=== PATIENT | female | born 1990 | race American Indian/Alaskan Native ===

== ENCOUNTER 2016-10-29 00:03 | Emergency (ER) | payer MEDICAID ==
[2016-10-29 00:04] VITALS: BMI 30.1
[2016-10-29 00:37] VITALS: BP 130/72; PULSE 82; RESP 18; TEMP 98.8; O2SAT 100
--- NOTE | 2016-10-29 00:58 | ED PDOC ---
Arrival/HPI - General Chief Complaint: Back Pain Time Seen by Provider: 10/29/16 00:58 - History of Present Illness Narrative History of Present Illness (Text): Patient presents complaining of back pain around her L. lower scapular region x1 year. States quality feels like muscle spasms. Worst with movement and palpation. Pt states this feels identical to previous back pain quality that have happened in the past. Denies any trauma or injury. Denies SOB/PARIS. States pain is non-pleuritic in nature. Denies fevers/chills, denies IVDA, denies any lower extremity weakness/numbness/paresthesias. Pt denies saddle anesthesia. Denies any urinary freq or retention. Denies bowel dysfunction/irregularity/ incontinence/constipation. Past Medical History - Provider Review Nursing Documentation Reviewed: Yes - Past History Past History: No Previous - Infectious Disease Hx of Infectious Diseases: None - Tetanus Immunization Tetanus Immunization: Unknown - Past Medical History Past Medical History: Non-Contributing - Cardiac Hx Cardiac Disorders: No - Pulmonary Hx Asthma: Yes - Neurological Hx Neurological Disorder: No - HEENT Hx HEENT Disorder: No - Renal Hx Renal Disorder: No - Endocrine/Metabolic Hx Endocrine Disorders: No - Hematological/Oncological Hx Blood Disorders: Yes (carries sickle cell trait) - Integumentary Hx Dermatological Disorder: No - Musculoskeletal/Rheumatological Hx Back Pain: Yes Hx Falls: No - Gastrointestinal Hx Gastrointestinal Disorders: No - Genitourinary/Gynecological Hx Genitourinary Disorders: No Other/Comment: hx of ovarian cysts - Psychiatric Hx Depression: No Hx Emotional Abuse: No Hx Physical Abuse: No Hx Substance Use: No - Surgical History Hx Section: Yes Other/Comment: OVARIA CYCT REMOVAL - Anesthesia Hx Anesthesia: Yes Hx Anesthesia Reactions: No Hx Malignant Hyperthermia: No - Suicidal Assessment Feels Threatened In Home Enviroment: No Family/Social History Family/Social History: Unknown Family HX Smoking Status: Current Some Days Smoker Hx Alcohol Use: Yes Frequency of alcohol use: Socially Hx Substance Use: No Hx Substance Use Treatment: No Allergies/Home Meds Allergies/Adverse Reactions: Allergies No Known Allergies Allergy (Verified 10/29/16 00:34) Review of Systems - Physician Review All systems were reviewed & negative as marked: Yes Physical Exam - Physical Exam Narrative Physical Exam (Text): 10/29/16 01:03 - Review of Systems Constitutional: Normal. absent: Fatigue, Weight Change, Fevers Eyes: Normal ENT: denies sore throat, denies tristhmus Respiratory: Normal. absent: SOB, Cough, Sputum Cardiovascular: absent: Chest Pain, Palpitations, Syncope Gastrointestinal: Normal. absent: Abdominal Pain, Diarrhea, Nausea, Vomiting Genitourinary: Normal. absent: Dysuria, Frequency, Hematuria Musculoskeletal: back pain. absent: Arthralgias, Neck Pain Skin: no rashes, no erythema Neurological: absent: Focal Weakness Endocrine: Normal Hemo/Lymphatic: Normal Psychiatric: No suicidal or homicidal ideations Physical exam Patient appears age appropriate in no distress, speaking full sentences without difficulty Increased hypertonicity appreciated in the L. subscapular region, pain quality reproduced with palpation. No midline tenderness. FROM of pt's cervical, thoracic, lumbar, and sacral regions appreciated, active/passive without any difficulty. Lower extremities with full neurological and vascular intact. Steady gait. - Systems Exam Head: Present: Atraumatic, Normocephalic Pupils: Present: PERRL Extroacular Muscles: Present: EOMI Conjunctiva: Present: Normal Mouth: Present: Moist Mucous Membranes Neck: Present: Normal Range of Motion. No: MIDLINE TENDERNESS, Paraspinal Tenderness Respiratory/Chest: Present: Clear to Auscultation, Good Air Exchange. No: Respiratory Distress, Accessory Muscle Use, Tachypneic Cardiovascular: Present: Regular Rate and Rhythm, Normal S1, S2, Peripheal Pulses Present. No: Murmurs Abdomen: Present: Normal Bowel Sounds. No: Tenderness, Distention, Peritoneal Signs, Rebound, Guarding Back: No: Midline Tenderness Upper Extremity: Present: Normal Inspection. No: Cyanosis, Edema Lower Extremity: Present: Normal Inspection. No: Edema Neurological: Present: GCS=15, Speech Normal, cranial nerves II through XII fully intact with no cerebellar abnormality, neurosensory fully intact. No focal neurological deficits. Skin: Present: Warm, Dry, Normal Color. No: Rashes Lymphatic: Present: OX3, NI, NC Psychiatric: Present: Alert, Oriented x 3, Normal Insight, Normal Concentration Vital Signs Reviewed: Yes Vital Signs Temp Pulse Resp BP Pulse Ox 10/29/16 00:36 98.8 F 82 18 130/72 100 Temperature: Afebrile Blood Pressure: Normal Pulse: Regular Respiratory Rate: Normal Appearance: Positive for: Well-Appearing Pain Distress: None Mental Status: Positive for: Alert and Oriented X 3 Medical Decision Making ED Course and Treatment: Based on hx and physical, no suspicion for renal involvement, cord impingement or epidural/spinal abscess stable for dc home. instructed not to drive/operate machinery/drink/do drugs with medication Pt verbalized understands to return to the ER right away for new or worsening symptoms or for inability to f/u with PMD or specialist as instructed. Patient verbalized full agreement with and understanding of discharge instructions. States that she agrees with the plan and disposition. Verbalized and repeated discharge instructions and plan. I have given the patient opportunity to ask any additional questions. Disposition/Present on Arrival - Present on Arrival Any Indicators Present on Arrival: No History of DVT/PE: No History of Uncontrolled Diabetes: No Urinary Catheter: No History of Decub. Ulcer: No History Surgical Site Infection Following: None - Disposition Have Diagnosis and Disposition been Completed?: Yes Diagnosis: Back pain Disposition: HOME/ ROUTINE Disposition Time: 01:01 Patient Plan: Discharge Condition: GOOD Discharge Instructions (ExitCare): Back Pain (ED) Additional Instructions: PLEASE RETURN TO THE EMERGENCY DEPARTMENT FOR NEW OR WORSENING SYMPTOMS. RETURN RIGHT AWAY IF YOU CANNOT FOLLOW UP WITH YOUR PRIMARY CARE DOCTOR, CLINIC, OR SPECIALIST IN 1-2 DAYS. Prescriptions: Diazepam [Valium] 2 mg PO DAILY PRN #5 tab PRN Reason: Pain, Severe (8-10) Ibuprofen [Motrin] 600 mg PO Q8 PRN #12 tab PRN Reason: Pain, Moderate (4-7) Referrals: Marlon Fang [Medical Doctor] - Follow up with primary Stalin Steward MD [Staff Provider] - Follow up with primary
== END 2016-10-29 01:10 | disposition home or self-care (01) ==
LOC: ED 00:03
DX: M54.9 Dorsalgia, unspecified (principal)

== ENCOUNTER 2017-02-07 19:26 | Emergency (ER) | payer MEDICAID ==
--- NOTE | 2017-02-07 20:05 | ED PDOC ---
Arrival/HPI - General Historian: Patient <Juancarlos Henderson - Last Filed: 02/07/17 20:50> <Kanu Floyd - Last Filed: 02/07/17 20:53> - General Time Seen by Provider: 02/07/17 19:54 - History of Present Illness Narrative History of Present Illness (Text): 02/07/17 19:56 26yo female with history of Asthma present with complaint of suprapubic abdominal pain and upper mid back pain. Abdominal pain started yesterday and back pain is chronic, but worse over the past few days. She noted history of herniated disc. States she saw her PMD for the pain and MRI was done. She noes that she gets pain medication from her PMD without relieve. Pain is usually with movement. +Urinary frequency. Denies trauma, ripping/tearing back pain, hematuria, fever, chills, nausea, vomiting, diarrhea, any other complaint. ( Juancarlos Henderson A) Past Medical History - Provider Review Nursing Documentation Reviewed: Yes - Past History Past History: No Previous - Infectious Disease Hx of Infectious Diseases: None - Tetanus Immunization Tetanus Immunization: Unknown - Past Medical History Past Medical History: Non-Contributing - Cardiac Hx Cardiac Disorders: No - Pulmonary Hx Asthma: Yes - Neurological Hx Neurological Disorder: No - HEENT Hx HEENT Disorder: No - Renal Hx Renal Disorder: No - Endocrine/Metabolic Hx Endocrine Disorders: No - Hematological/Oncological Hx Blood Disorders: Yes (carries sickle cell trait) - Integumentary Hx Dermatological Disorder: No - Musculoskeletal/Rheumatological Hx Back Pain: Yes Hx Falls: No - Gastrointestinal Hx Gastrointestinal Disorders: No - Genitourinary/Gynecological Hx Genitourinary Disorders: No Other/Comment: hx of ovarian cysts - Psychiatric Hx Depression: No Hx Emotional Abuse: No Hx Physical Abuse: No Hx Substance Use: No - Surgical History Hx Section: Yes Other/Comment: OVARIA CYCT REMOVAL - Anesthesia Hx Anesthesia: Yes Hx Anesthesia Reactions: No Hx Malignant Hyperthermia: No - Suicidal Assessment Feels Threatened In Home Enviroment: No <Juancarlos Henderson - Last Filed: 02/07/17 20:50> Family/Social History - Physician Review Nursing Documentation Reviewed: Yes Family/Social History: Unknown Family HX Smoking Status: Current Some Days Smoker Hx Alcohol Use: Yes Hx Substance Use: No Hx Substance Use Treatment: No <Juancarlos Henderson - Last Filed: 02/07/17 20:50> Allergies/Home Meds <Juancarlos Henderson - Last Filed: 02/07/17 20:50> <MarielKanu - Last Filed: 02/07/17 20:53> Allergies/Adverse Reactions: Allergies No Known Allergies Allergy (Verified 10/29/16 00:34) Review of Systems - Physician Review All systems were reviewed & negative as marked: Yes - Review of Systems Constitutional: Normal Eyes: Normal ENT: Normal Respiratory: Normal Cardiovascular: Normal Gastrointestinal: Abdominal Pain. absent: Constipation, Diarrhea, Nausea, Vomiting Genitourinary Female: Frequency. absent: Dysuria, Hematuria Musculoskeletal: Back Pain Skin: Normal Neurological: Normal Endocrine: Normal Hemo/Lymphatic: Normal Psychiatric: Normal <Juancarlos Henderson A - Last Filed: 02/07/17 20:50> Physical Exam Vital Signs Reviewed: Yes Temperature: Afebrile Blood Pressure: Normal Pulse: Regular Respiratory Rate: Normal Appearance: Positive for: Well-Appearing, Non-Toxic, Comfortable Pain Distress: None Mental Status: Positive for: Alert and Oriented X 3 - Systems Exam Head: Present: Atraumatic, Normocephalic Pupils: Present: PERRL Extroacular Muscles: Present: EOMI Conjunctiva: Present: Normal Mouth: Present: Moist Mucous Membranes Neck: Present: Normal Range of Motion Respiratory/Chest: Present: Clear to Auscultation, Good Air Exchange. No: Respiratory Distress, Accessory Muscle Use Cardiovascular: Present: Regular Rate and Rhythm, Normal S1, S2. No: Murmurs Abdomen: Present: Normal Bowel Sounds. No: Tenderness, Distention, Peritoneal Signs, Rebound, Guarding, McBurney's Point Tender, Rovsing's Sign Present Back: Present: Midline Tenderness, Paraspinal Tenderness. No: CVA Tenderness, Pain with Leg Raise Upper Extremity: Present: Normal Inspection. No: Cyanosis, Edema Lower Extremity: Present: Normal Inspection. No: Edema Neurological: Present: GCS=15, CN II-XII Intact, Speech Normal Skin: Present: Warm, Dry, Normal Color. No: Rashes Psychiatric: Present: Alert, Oriented x 3, Normal Insight, Normal Concentration <Juancarlos Henderson - Last Filed: 02/07/17 20:50> Vital Signs Temp Pulse Resp BP Pulse Ox 10/23/17 20:05 98.8 F 85 16 123/52 L 99 Medical Decision Making <Juancarlos Henderson - Last Filed: 02/07/17 20:50> <Kanu Floyd - Last Filed: 02/07/17 20:53> ED Course and Treatment: 02/07/17 20:50 PT was ambulatory in ED. On re evaluation she notes that her pain improved in ED with medication. UA - +UTI. she was treated with Macorbid. Result was DW the pt and she was DC home with NSAID, muscle relaxer and macrobid. Referred to her PMD. TRT ED for any new or worsening symptoms. (Juancarlos Henderson ) - Lab Interpretations Lab Results: Lab Results 02/07/17 19:55: Urine Color Yellow, Urine Appearance Clear, Urine pH 6.5, Ur Specific [place] 1.010, Urine Protein Negative, Urine Glucose (UA) Negative, Urine Ketones Negative, Urine Blood Negative, Urine Nitrate Negative, Urine Bilirubin Negative, Urine Urobilinogen 0.2, Ur Leukocyte Esterase Moderate H, Urine RBC 0 - 2, Urine WBC 20 - 25, Ur Epithelial Cells 6 - 8, Amorphous Sediment Few, Urine Bacteria Many, Urine Other Uyeast - Medication Orders Current Medication Orders: Discontinued Medications Cyclobenzaprine HCl (Flexeril) 10 mg PO STAT STA Stop: 02/07/17 19:57 Dexamethasone (Decadron Inj) 10 mg IM STAT STA Stop: 02/07/17 19:56 Ketorolac Tromethamine (Toradol) 60 mg IM STAT STA Stop: 02/07/17 19:56 Nitrofurantoin Macrocrystals (Macrobid) 100 mg PO ONCE STA Stop: 02/07/17 20:19 - PA / DAY LIGHT RELIEF OPERATOR / Resident Statement MD/DO has reviewed & agrees with the documentation as recorded. <Kanu Floyd - Last Filed: 02/07/17 20:53> Disposition/Present on Arrival - Present on Arrival Any Indicators Present on Arrival: No History of DVT/PE: No History of Uncontrolled Diabetes: No Urinary Catheter: No History Surgical Site Infection Following: None - Disposition Have Diagnosis and Disposition been Completed?: Yes Disposition Time: 20:35 Patient Plan: Discharge <Juancarlos Henderson - Last Filed: 02/07/17 20:50> <Kanu Floyd - Last Filed: 02/07/17 20:53> - Disposition Diagnosis: UTI (urinary tract infection), Back pain Disposition: HOME/ ROUTINE Patient Problems: Current Active Problems Problem Status Onset Back pain Acute UTI (urinary tract infection) Acute Condition: STABLE Discharge Instructions (ExitCare): Urinary Tract Infection in Women (ED), Chronic Back Pain (ED) Additional Instructions: Drink plenty of fluid and take cranberry supplement Follow up with your doctor Return to ED for any new or worsening symptoms Prescriptions: Cyclobenzaprine [Cyclobenzaprine HCl] 10 mg PO TID #12 tab Naproxen [Naprosyn] 500 mg PO BID #20 tab Nitrofurantoin Macrocrystals [Macrobid] 100 mg PO BID #14 cap Referrals: Royer Fang MD [Primary Care Provider] - Follow up with primary
[2017-02-07 20:10] LABS: PH,URINE 6.5 (4.7-8.0); URINE APPEARANCE CLEAR (CLEAR); URINE BILIRUBIN NEGATIVE (NEGATIVE); URINE BLOOD NEGATIVE (NEGATIVE); URINE COLOR YELLOW (YELLOW); URINE GLUCOSE (UA) NEGATIVE (NEGATIVE); URINE KETONE NEGATIVE (NEGATIVE); URINE LEUKOCYTE ESTERASE MODERATE Leu/uL (NEGATIVE); URINE PROTEIN NEGATIVE mg/dL (<30 mg/dL); URINE UROBILINOGEN 0.2 E.U./dL (<1 E.U./dL)
[2017-02-07 20:12] VITALS: BP 123/52; PULSE 85; RESP 16; O2SAT 99
[2017-02-07 20:18] LABS: URINE RBC 0 - 2 /hpf (0-2); URINE WBC 20 - 25 /hpf (0-6)
[2017-02-07 20:19] LABS: URINE AMORPHOUS SEDIMENT FEW; URINE BACTERIA MANY (NEG)
[2017-02-07 22:17] VITALS: TEMP 98.5
== END 2017-02-07 20:51 | disposition home or self-care (01) ==
LOC: ED 19:26
DX: N39.0 Urinary tract infection, site not specified (principal); M54.9 Dorsalgia, unspecified
CPT/HCPCS: 81001; 87086; 96372; 99283; J1100; J1885

== ENCOUNTER 2017-03-23 12:34 | Emergency (ER) | payer MEDICAID ==
[2017-03-23 13:03] VITALS: TEMP 98.3
[2017-03-23 13:54] LABS: BASO # 0.01 K/mm3 (0.0-2.0); BASO % 0.1 % (0.0-3.0); EOS # 0.2 (0.0-0.7); GRAN # 4.67 (1.4-6.5); GRAN % 66.7 % (50.0-68.0); HEMATOCRIT 36.4 % (36.0-48.0); LYMPH # 1.7 (1.2-3.4); LYMPH % 23.9 % (22.0-35.0); MEAN CELL VOLUME 78.3 fl (80.0-105.0); MEAN CORPUSCULAR HEMOGLOBIN 27.1 pg (25.0-35.0); MEAN CORPUSCULAR HGB CONC 34.6 g/dl (31.0-37.0); MEAN PLATELET VOLUME 10.6 fl (7.0-11.0); MONO # 0.4 (0.1-0.6); MONO % 6.3 % (1.0-6.0); RED CELL DISTRIBUTION WIDTH 13.7 % (11.5-14.5); URINE BILIRUBIN NEGATIVE (NEGATIVE); URINE BLOOD MODERATE (NEGATIVE); URINE GLUCOSE (UA) NEGATIVE (NEGATIVE); URINE KETONE NEGATIVE (NEGATIVE); URINE LEUKOCYTE ESTERASE SMALL Leu/uL (NEGATIVE); URINE PROTEIN NEGATIVE mg/dL (<30 mg/dL); URINE UROBILINOGEN 0.2 E.U./dL (<1 E.U./dL)
[2017-03-23 13:56] LABS: URINE APPEARANCE CLEAR (CLEAR); URINE COLOR YELLOW (YELLOW)
[2017-03-23 14:07] LABS: ALB/GLOB RATIO 1.1 (1.1-1.8); ALKALINE PHOSPHATASE 66 U/L (38-126); ALT/SGPT 25 U/L (7-56); AST/SGOT 25 U/L (14-36); BILIRUBIN,TOTAL 0.5 mg/dL (0.2-1.3); BLOOD UREA NITROGEN 8 mg/dL (7-21); CALCIUM 9.7 mg/dL (8.4-10.5); CARBON DIOXIDE 27 mmol/L (21-33); CHLORIDE 104 mmol/L (98-107); GFR AFRICAN-AMERICAN > 60; GLUCOSE,RANDOM 96 mg/dL (70-110); LIPASE 75 U/L (23-300); TOTAL PROTEIN 8.5 g/dL (5.8-8.3)
[2017-03-23 14:16] LABS: SODIUM 141 mmol/L (132-148)
[2017-03-23 14:23] LABS: URINE BACTERIA FEW (NEG)
[2017-03-23 15:20] VITALS: RESP 18; O2SAT 98
--- NOTE | 2017-03-23 15:30 | ED PDOC ---
Arrival/HPI - General Chief Complaint: Abdominal Pain Time Seen by Provider: 03/23/17 13:16 Historian: Patient - History of Present Illness Narrative History of Present Illness (Text): 03/23/17 15:27 26yr old female presents today with chronic left upper back pain and 3 days history of lower abdominal pain/suprapubic pain. pt states she has hx of chronic upper back pain and herniated discs and states when she gets a flare she need a shot for pain and symptoms improve. pt denies cp or sob. no vomiting/ diarrhea. no cp or sob. pt also states that she has been having lower suprapubic pain with hx of UTI in the past. pt c/o dysuria and urinary frequency. denies vaginal bleeding or vaginal discharge. no medications taken for pain at home. denies . no other complaints. Symptom Onset: Gradual Symptom Course: Unchanged Quality: Aching, Cramping Severity Level: 4 Past Medical History - Provider Review Nursing Documentation Reviewed: Yes - Travel History Have you recently traveled outside [place] w/in the past 3 mons?: No - Past History Past History: No Previous - Infectious Disease Hx of Infectious Diseases: None - Tetanus Immunization Tetanus Immunization: Unknown - Reproductive Menopause: No - Past Medical History Past Medical History: Non-Contributing - Cardiac Hx Cardiac Disorders: No - Pulmonary Hx Asthma: Yes - Neurological Hx Neurological Disorder: No - HEENT Hx HEENT Disorder: No - Renal Hx Renal Disorder: No - Endocrine/Metabolic Hx Endocrine Disorders: No - Hematological/Oncological Hx Blood Disorders: Yes (carries sickle cell trait) - Integumentary Hx Dermatological Disorder: No - Musculoskeletal/Rheumatological Hx Back Pain: Yes Hx Falls: No - Gastrointestinal Hx Gastrointestinal Disorders: No - Genitourinary/Gynecological Hx Genitourinary Disorders: No Other/Comment: hx of ovarian cysts - Psychiatric Hx Depression: No Hx Emotional Abuse: No Hx Physical Abuse: No Hx Substance Use: No - Surgical History Hx Section: Yes Other/Comment: OVARIA CYCT REMOVAL - Anesthesia Hx Anesthesia: Yes Hx Anesthesia Reactions: No Hx Malignant Hyperthermia: No - Suicidal Assessment Feels Threatened In Home Enviroment: No Family/Social History - Physician Review Nursing Documentation Reviewed: Yes Family/Social History: Unknown Family HX Smoking Status: Current Some Days Smoker Hx Alcohol Use: Yes Hx Substance Use: No Hx Substance Use Treatment: No Allergies/Home Meds Allergies/Adverse Reactions: Allergies No Known Allergies Allergy (Verified 10/29/16 00:34) Review of Systems - Review of Systems Constitutional: absent: Fatigue, Fevers Respiratory: absent: SOB, Cough Cardiovascular: absent: Chest Pain, Palpitations Gastrointestinal: Abdominal Pain. absent: Constipation, Diarrhea, Nausea, Vomiting Genitourinary Female: Dysuria, Frequency. absent: Hematuria, Urine Output Changes, Vaginal Bleeding, Vaginal Discharge Musculoskeletal: Back Pain. absent: Arthralgias, Neck Pain Skin: absent: Rash, Pruritis Neurological: absent: Headache, Dizziness Psychiatric: absent: Anxiety, Depression, Suicidal Ideation Physical Exam Vital Signs Reviewed: Yes Vital Signs Temp Pulse Resp BP Pulse Ox 03/23/17 16:28 75 18 114/68 98 03/23/17 15:19 78 18 112/65 98 03/23/17 12:56 98.3 F 82 14 114/67 100 Temperature: Afebrile Blood Pressure: Normal Pulse: Regular Respiratory Rate: Normal Appearance: Positive for: Well-Appearing, Non-Toxic, Comfortable Pain Distress: None Mental Status: Positive for: Alert and Oriented X 3 - Systems Exam Head: Present: Atraumatic Mouth: Present: Moist Mucous Membranes Neck: Present: Normal Range of Motion, Trachea Midline. No: MIDLINE TENDERNESS , Paraspinal Tenderness Respiratory/Chest: Present: Clear to Auscultation, Good Air Exchange. No: Respiratory Distress, Accessory Muscle Use Cardiovascular: Present: Regular Rate and Rhythm, Normal S1, S2. No: Murmurs Abdomen: Present: Tenderness (minimal suprapubic tenderness), Normal Bowel Sounds. No: Distention, Peritoneal Signs, Rebound, Guarding Back: Present: Normal Inspection, Paraspinal Tenderness (+ left upper back paraspinal tenderness and trapezius tenderness). No: CVA Tenderness, Midline Tenderness Upper Extremity: Present: Normal ROM Lower Extremity: Present: Normal ROM Neurological: Present: GCS=15, Speech Normal Skin: Present: Warm, Dry, Normal Color. No: Rashes Psychiatric: Present: Alert, Oriented x 3 Medical Decision Making ED Course and Treatment: 03/23/17 15:30 Patient is nontoxic well appearing with stable vital signs presenting withchronic back pain and 3 days of suprapubic pain. CBC wnl CMP wnl Lipase wnl Urinalysis + blood, + leukocytes CAT scan: FINDINGS: There is limited evaluation of the solid organs without the administration of IV contrast. LOWER THORAX: No visible consolidation, pleural effusion, or pneumothorax. LIVER: 6 mm too small to characterize hepatic dome hypodensity ; statistically likely cyst or hemangioma. GALLBLADDER AND BILE DUCTS: Unremarkable unenhanced appearance. PANCREAS: Unremarkable unenhanced appearance. SPLEEN: 5 mm probable splenule. Otherwise unremarkable unenhanced appearance. ADRENALS: Unremarkable unenhanced appearance. KIDNEYS AND URETERS: No hydronephrosis or obstructing renal calculus. BLADDER: The urinary bladder appears unremarkable. REPRODUCTIVE: Uterus is present. APPENDIX: The appendix appears within normal limits of caliber. No secondary signs of acute appendicitis. BOWEL: The stomach is nondistended. Lack of oral contrast limits evaluation for bowel pathology. The bowel loops appear within normal limits of caliber without evidence of intestinal obstruction. PERITONEUM: No significant free fluid. No definite free air. LYMPH NODES: No bulky lymphadenopathy identified. VASCULATURE: No aortic aneurysm. BONES: No acute osseous abnormality is detected. OTHER FINDINGS: None. IMPRESSION: 6 mm too small to characterize hepatic dome hypodensity ; statistically likely cyst or hemangioma. Patient reassessment: pt non toxic well appearing; no distress. stable vitals. Patient refused pelvic exam. Patient states she just got her period. Discussed all results with patient in depth. Advised follow-up with the GI doctor regarding hepatic lesion. Advised antibiotics for UTI. Advised follow-up with her barista within the next 2 days. Advised to return if symptoms worsen persist or if new concerning symptoms develop Patient verbalizes understanding of discharge instructions and need for immediate followup. all aspects of this case were discussed the attending of record. Impression: Abdominal pain, UTI, back pain Motrin every 6 hours as needed for pain flexeril; 1 tablet every 8 hours as needed for muscle spasms; may cause drowsiness Kelfex; 1 capsule 4 times daily x 7 days. Follow up with primary care physician within the next 2 days Follow up with the contact acid plant operator within the next 2 days. Follow up with the GI specialist regarding Liver lesion. Return immediately if symptoms worsen persist or if new symptoms develop: High fevers, increasing pain, vomiting, diarrhea or any other concerning symptoms develop - Lab Interpretations Lab Results: 03/23/17 13:05 03/23/17 13:05 Lab Results 03/23/17 13:05: Urine Color Yellow, Urine Appearance Clear, Urine pH 6.0, Ur Specific [place] 1.015, Urine Protein Negative, Urine Glucose (UA) Negative, Urine Ketones Negative, Urine Blood Moderate H, Urine Nitrate Negative, Urine Bilirubin Negative, Urine Urobilinogen 0.2, Ur Leukocyte Esterase Small H, Urine RBC 1 - 3, Urine WBC 5 - 10, Ur Epithelial Cells 3 - 4, Urine Bacteria Few 03/23/17 13:05: WBC 7.0, RBC 4.65, Hgb 12.6, Hct 36.4, MCV 78.3 L, MCH 27.1, MCHC 34.6, RDW 13.7, Plt Count 230, MPV 10.6, Gran % 66.7, Lymph % (Auto) 23.9, Hanson % (Auto) 6.3 H, Eos % (Auto) 3.0, Baso % (Auto) 0.1, Gran # 4.67, Lymph # 1.7, Hanson # 0.4, Eos # 0.2, Baso # 0.01 03/23/17 13:05: Sodium 141, Potassium 4.0, Chloride 104, Carbon Dioxide 27, Anion Gap 14, BUN 8, Creatinine 0.9, Est GFR ( Amer) > 60, Est GFR (Non- Af Amer) > 60, Random Glucose 96, Calcium 9.7, Total Bilirubin 0.5, AST 25, ALT 25, Alkaline Phosphatase 66, Total Protein 8.5 H, Albumin 4.5, Globulin 4.0, Albumin/Globulin Ratio 1.1, Lipase 75 - RAD Interpretation Radiology Orders: 03/23/17 14:10 ABD & PELVIS W/O PO OR IV CONT [CT] Stat - Medication Orders Current Medication Orders: Cephalexin Monohydrate (Keflex) 500 mg PO STAT STA PRN Reason: Protocol Stop: 03/23/17 18:08 Discontinued Medications Ketorolac Tromethamine (Toradol) 30 mg IVP STAT STA Stop: 03/23/17 13:29 Last Admin: 03/23/17 13:44 Dose: 30 mg MAR Pain Assessment Document 03/23/17 13:44 SE (Rec: 03/23/17 13:45 SE [id number]) Pain Reassessment Is this a pain reassessment? No Sleep Is patient sleeping during reassessment? No Presence of Pain Presence of Pain Yes IVP Administration Document 03/23/17 13:44 SE (Rec: 03/23/17 13:45 SE [id number]) Charges for Administration # of IVP Administrations 1 Disposition/Present on Arrival - Present on Arrival Any Indicators Present on Arrival: No History of DVT/PE: No History of Uncontrolled Diabetes: No Urinary Catheter: No History of Decub. Ulcer: No History Surgical Site Infection Following: None - Disposition Have Diagnosis and Disposition been Completed?: Yes Diagnosis: UTI (urinary tract infection), Back pain, Liver lesion Disposition: HOME/ ROUTINE Disposition Time: 18:12 Patient Plan: Discharge Condition: GOOD Discharge Instructions (ExitCare): Urinary Tract Infection in Women (ED), Back Pain (ED) Additional Instructions: Motrin every 6 hours as needed for pain flexeril; 1 tablet every 8 hours as needed for muscle spasms; may cause drowsiness Kelfex; 1 capsule 4 times daily x 7 days. Follow up with primary care physician within the next 2 days Follow up with the contact acid plant operator within the next 2 days. Follow up with the GI specialist regarding Liver lesion. Return immediately if symptoms worsen persist or if new symptoms develop: High fevers, increasing pain, vomiting, diarrhea or any other concerning symptoms develop Prescriptions: Cephalexin [Keflex] 500 mg PO QID #28 capsule Cyclobenzaprine [Cyclobenzaprine HCl] 10 mg PO Q8 #10 tab Ibuprofen [Motrin] 600 mg PO Q6H PRN #20 tab PRN Reason: pain/fever reduction Referrals: Royer Fang MD [Primary Care Provider] - Follow up with primary Paula Winn MD [Medical Doctor] - Follow up with primary Jordan Sun MD [Staff Provider] - Follow up with primary Ketan Lizama [Medical Doctor] - Follow up with primary Forms: [facility] (Armenian), WORK NOTE
[2017-03-23 16:29] VITALS: BP 114/68; PULSE 75
--- NOTE | 2017-03-23 17:44 | CT ---
PROCEDURE: CT Abdomen and Pelvis without Oral or IV contrast. HISTORY: ABDOMINAL PAIN/back pain COMPARISON: CT abdomen and pelvis with contrast performed 09/15/15 TECHNIQUE: Contiguous axial images of the abdomen and pelvis. No oral or IV contrast administered. Coronal and Sagittal reformats generated and reviewed. Radiation dose: Total exam DLP = 689.47 mGy-cm. This CT exam was performed using one or more of the following dose reduction techniques: Automated exposure control, adjustment of the mA and/or kV according to patient size, and/or use of iterative reconstruction technique. FINDINGS: There is limited evaluation of the solid organs without the administration of IV contrast. LOWER THORAX: No visible consolidation, pleural effusion, or pneumothorax. LIVER: 6 mm too small to characterize hepatic dome hypodensity ; statistically likely cyst or hemangioma. GALLBLADDER AND BILE DUCTS: Unremarkable unenhanced appearance. PANCREAS: Unremarkable unenhanced appearance. SPLEEN: 5 mm probable splenule. Otherwise unremarkable unenhanced appearance. ADRENALS: Unremarkable unenhanced appearance. KIDNEYS AND URETERS: No hydronephrosis or obstructing renal calculus. BLADDER: The urinary bladder appears unremarkable. REPRODUCTIVE: Uterus is present. APPENDIX: The appendix appears within normal limits of caliber. No secondary signs of acute appendicitis. BOWEL: The stomach is nondistended. Lack of oral contrast limits evaluation for bowel pathology. The bowel loops appear within normal limits of caliber without evidence of intestinal obstruction. PERITONEUM: No significant free fluid. No definite free air. LYMPH NODES: No bulky lymphadenopathy identified. VASCULATURE: No aortic aneurysm. BONES: No acute osseous abnormality is detected. OTHER FINDINGS: None. IMPRESSION: 6 mm too small to characterize hepatic dome hypodensity ; statistically likely cyst or hemangioma.
== END 2017-03-23 18:26 | disposition home or self-care (01) ==
LOC: ED 12:34
DX: N39.0 Urinary tract infection, site not specified (principal); M54.9 Dorsalgia, unspecified; K76.9 Liver disease, unspecified
CPT/HCPCS: 74176; 80053; 81001; 83690; 85025; 87086; 96374; 99284; J1885

== ENCOUNTER 2017-05-03 11:28 | Emergency (ER) | payer MEDICAID ==
[2017-05-03 11:45] VITALS: BP 115/65; PULSE 79; RESP 18; TEMP 98.3; O2SAT 100
--- NOTE | 2017-05-03 12:51 | ED PDOC ---
Arrival/HPI - General Historian: Patient - History of Present Illness Time/Duration: Other (2 days) Quality: Burning Severity Level: Mild <Susanne Rodrigez - Last Filed: 05/03/17 18:25> <Hattie Calvillo - Last Filed: 05/03/17 22:13> - General Chief Complaint: ENT Problem Time Seen by Provider: 05/03/17 12:44 - History of Present Illness Narrative History of Present Illness (Text): 05/03/17 12:51 26-year-old female presents today with a 2 day history of sore throat and bilateral ear pain. Patient complaining of subjective fevers at home. Denies nausea or vomiting. Denies cough. Denies sick contacts. No medications have been taken at home. Patient denies trismus or drooling. Complaining of burning when she swallows. No other complaints (Susanne Rodrigez) Past Medical History - Provider Review Nursing Documentation Reviewed: Yes - Travel History Have you recently traveled outside [place] w/in the past 3 mons?: No - Past History Past History: No Previous - Infectious Disease Hx of Infectious Diseases: None - Tetanus Immunization Tetanus Immunization: Unknown - Past Medical History Past Medical History: Non-Contributing - Cardiac Hx Cardiac Disorders: No - Pulmonary Hx Respiratory Disorders: Yes Hx Asthma: Yes - Neurological Hx Neurological Disorder: No - HEENT Hx HEENT Disorder: No - Renal Hx Renal Disorder: No - Endocrine/Metabolic Hx Endocrine Disorders: No - Hematological/Oncological Hx Blood Disorders: Yes (carries sickle cell trait) - Integumentary Hx Dermatological Disorder: No - Musculoskeletal/Rheumatological Hx Back Pain: Yes Hx Falls: No - Gastrointestinal Hx Gastrointestinal Disorders: No - Genitourinary/Gynecological Hx Genitourinary Disorders: No Other/Comment: hx of ovarian cysts - Psychiatric Hx Depression: No Hx Emotional Abuse: No Hx Physical Abuse: No Hx Substance Use: No - Surgical History Hx Section: Yes - Anesthesia Hx Anesthesia: Yes Hx Anesthesia Reactions: No Hx Malignant Hyperthermia: No - Suicidal Assessment Feels Threatened In Home Enviroment: No <Susanne Rodrigez - Last Filed: 05/03/17 18:25> Family/Social History - Physician Review Nursing Documentation Reviewed: Yes Family/Social History: Unknown Family HX Smoking Status: Current Some Days Smoker Hx Alcohol Use: Yes Frequency of alcohol use: Socially Hx Substance Use: No Hx Substance Use Treatment: No <Susanne Rodrigez - Last Filed: 05/03/17 18:25> Allergies/Home Meds <Susanne Rodrigez - Last Filed: 05/03/17 18:25> <Hattie Calvillo - Last Filed: 05/03/17 22:13> Allergies/Adverse Reactions: Allergies No Known Allergies Allergy (Verified 05/03/17 12:04) Review of Systems - Review of Systems Constitutional: absent: Fatigue, Fevers ENT: Sore Throat, Sinus Congestion, Other (bilateral ear pain) Respiratory: absent: SOB, Cough Cardiovascular: absent: Chest Pain, Palpitations Gastrointestinal: absent: Abdominal Pain, Nausea, Vomiting Musculoskeletal: absent: Arthralgias Skin: absent: Rash, Pruritis Neurological: absent: Headache, Dizziness Psychiatric: absent: Anxiety, Depression, Suicidal Ideation <Susanne Rodrigez - Last Filed: 05/03/17 18:25> Physical Exam Vital Signs Reviewed: Yes Temperature: Afebrile Blood Pressure: Normal Pulse: Regular Respiratory Rate: Normal Appearance: Positive for: Well-Appearing, Non-Toxic, Comfortable Pain Distress: None Mental Status: Positive for: Alert and Oriented X 3 - Systems Exam Head: Present: Atraumatic Conjunctiva: Present: Normal Ears: Present: Normal, NORMAL TM, Normal Canal. No: Erythema, TM Bulging, Fluid , TM Perf Mouth: Present: Moist Mucous Membranes, Normal Lips, Normal Tounge, Normal Teeth. No: Drooling, Trismus Pharnyx: Present: ERYTHEMA. No: EXUDATE, TONSILS ENLARGED, Peritonsilar Swelling, Uvular Deviation, Muffled/Hoarse Voice Nose (External): Present: Atraumatic Nose (Internal): Present: Normal Inspection Neck: Present: Normal Range of Motion, Trachea Midline Respiratory/Chest: Present: Clear to Auscultation, Good Air Exchange. No: Respiratory Distress, Accessory Muscle Use Cardiovascular: Present: Regular Rate and Rhythm, Normal S1, S2. No: Murmurs Neurological: Present: GCS=15, Speech Normal Skin: Present: Warm, Dry, Normal Color. No: Rashes Psychiatric: Present: Alert, Oriented x 3 <Glenn Rodrigezkimberli Smiley - Last Filed: 05/03/17 18:25> Vital Signs Temp Pulse Resp BP Pulse Ox 05/03/17 11:45 98.3 F 79 18 115/65 100 Medical Decision Making <Susanne Rodrigez - Last Filed: 05/03/17 18:25> <Hattie Calvillo - Last Filed: 05/03/17 22:13> ED Course and Treatment: 05/03/17 12:53 Patient is nontoxic well appearing in no distress. Vital signs are stable motrin po amoxicillin Po I advised follow up with primary care physician within the next 2 days, advised to increase fluids take medications as prescribed and return if symptoms worsen persist or if new symptoms develop Patient verbalizes understanding of discharge instructions and need for immediate followup. all aspects of this case were discussed the attending of record. IMPRESSION; pharyngitis Motrin every 6 hours as needed for pain/fever reduction Increase fluids Amoxicillin; 3 times daily x10 days Follow up primary care physician within the next 2 days Follow up with [place] gargles, throat lozenges Return if symptoms worsen persist or if the symptoms develop (Susanne Rodrigez) - Medication Orders Current Medication Orders: Discontinued Medications Amoxicillin (Amoxil 500 Mg Cap) 500 mg PO STAT STA PRN Reason: Protocol Stop: 05/03/17 12:45 Last Admin: 05/03/17 12:52 Dose: 500 mg Ibuprofen (Motrin Tab) 600 mg PO STAT STA Stop: 05/03/17 12:45 Last Admin: 05/03/17 12:53 Dose: 600 mg MAR Pain/Vitals Document 05/03/17 12:53 [facility] (Rec: 05/03/17 12:54 [id number]) Pain Reassessment Is This A Pain ReAssessment? Yes Sleep Is patient sleeping during reassessment? No Presence of Pain Presence of Pain Yes Pain Scale Used Pain Scale Used Numeric Location Pain Location Body Site Throat Description Constant Intensity 8 Scale Used Numeric Aggravating Factors ADL's - PA / [employer] / Resident Statement MD/DO has reviewed & agrees with the documentation as recorded. <Hattie Calvillo - Last Filed: 05/03/17 22:13> Disposition/Present on Arrival - Present on Arrival Any Indicators Present on Arrival: No History of DVT/PE: No History of Uncontrolled Diabetes: No Urinary Catheter: No History of Decub. Ulcer: No History Surgical Site Infection Following: None - Disposition Have Diagnosis and Disposition been Completed?: Yes Disposition Time: 12:47 Patient Plan: Discharge <Susanne Rodrigez - Last Filed: 05/03/17 18:25> <Hattie Calvillo - Last Filed: 05/03/17 22:13> - Disposition Diagnosis: Pharyngitis, Earache Disposition: HOME/ ROUTINE Condition: GOOD Discharge Instructions (ExitCare): Pharyngitis (ED) Additional Instructions: Motrin every 6 hours as needed for pain/fever reduction Increase fluids Amoxicillin; 3 times daily x10 days Follow up primary care physician within the next 2 days Follow up with the ENT specialist within the next 2 days. [place] gargles, throat lozenges Return if symptoms worsen persist or if the symptoms develop Prescriptions: Amoxicillin 500 mg PO TID #30 tab Ibuprofen [Motrin] 600 mg PO Q6H PRN #20 tab PRN Reason: pain/fever reduction Referrals: Royer Fang MD [Primary Care Provider] - Follow up with primary Washington Ingram DO [Staff Provider] - Follow up with primary Forms: [employer] (Brazilian), WORK NOTE
== END 2017-05-03 13:20 | disposition home or self-care (01) ==
LOC: ED 11:28
DX: J02.9 Acute pharyngitis, unspecified (principal); H92.03 Otalgia, bilateral; F17.210 Nicotine dependence, cigarettes, uncomplicated

== ENCOUNTER 2017-05-28 11:38 | Emergency (ER) | payer MEDICAID ==
[2017-05-28 11:54] VITALS: BP 110/60; PULSE 86; RESP 18; TEMP 98.7; O2SAT 98
--- NOTE | 2017-05-28 12:16 | ED PDOC ---
Arrival/HPI - General Chief Complaint: Back Pain Time Seen by Provider: 05/28/17 11:53 Historian: Patient - History of Present Illness Narrative History of Present Illness (Text): 05/28/17 12:18 26 year old female, with past medical history of asthma and syringomyelia, presents to the Emergency department complaining of worsening left upper back discomfort and swelling for past couple days. Patient informs visiting a back specialist on 05/12/17, who diagnosed her with syringomyelia after performing an MRI. Patient informs tolerance to ibuprofen, the only pain medication provided until her follow-up visit with the specialist on June 10, 2017. Patient informs increasing pain when laying down and mild weakness/tingling on right arm. Patient requests administration of steroid for upper swelling and a different medication for the pain. Patient denies any fever, chills, nausea, vomiting, diarrhea, abdominal pain, chest pain, shortness of breath, trauma or any other complaints. Patient informs drinking socially. Time/Duration: < week Symptom Onset: Gradual Symptom Course: Worsening Quality: Aching Activities at Onset: Light Context: Home Past Medical History - Provider Review Nursing Documentation Reviewed: Yes - Past History Past History: No Previous - Infectious Disease Hx of Infectious Diseases: None - Tetanus Immunization Tetanus Immunization: Unknown - Past Medical History Past Medical History: Non-Contributing - Cardiac Hx Cardiac Disorders: No - Pulmonary Hx Respiratory Disorders: Yes Hx Asthma: Yes - Neurological Hx Neurological Disorder: No - HEENT Hx HEENT Disorder: No - Renal Hx Renal Disorder: No - Endocrine/Metabolic Hx Endocrine Disorders: No - Hematological/Oncological Hx Blood Disorders: Yes (carries sickle cell trait) - Integumentary Hx Dermatological Disorder: No - Musculoskeletal/Rheumatological Hx Back Pain: Yes - Gastrointestinal Hx Gastrointestinal Disorders: No - Genitourinary/Gynecological Hx Genitourinary Disorders: No Other/Comment: hx of ovarian cysts - Psychiatric Hx Psychophysiologic Disorder: No Hx Substance Use: No - Surgical History Hx Section: Yes (x1) Other/Comment: ovarian cyst removal - Anesthesia Hx Anesthesia: Yes Hx Anesthesia Reactions: No Hx Malignant Hyperthermia: No - Suicidal Assessment Feels Threatened In Home Enviroment: No Family/Social History - Physician Review Nursing Documentation Reviewed: Yes Family/Social History: No Known Family HX Smoking Status: Current Some Days Smoker Hx Alcohol Use: Yes Frequency of alcohol use: Socially Hx Substance Use: No Hx Substance Use Treatment: No Allergies/Home Meds Allergies/Adverse Reactions: Allergies No Known Allergies Allergy (Verified 05/28/17 11:54) Home Medications: Home Meds Medication Instructions Recorded Confirmed Ibuprofen [Motrin] 800 mg PO Q6H PRN 05/28/17 05/28/17 Review of Systems - Physician Review All systems were reviewed & negative as marked: Yes - Review of Systems Constitutional: Normal. absent: Fevers Eyes: Normal ENT: Normal Respiratory: Normal. absent: SOB Cardiovascular: Normal. absent: Chest Pain Gastrointestinal: Normal. absent: Abdominal Pain, Diarrhea, Nausea, Vomiting Genitourinary Female: Normal Musculoskeletal: Back Pain, Other (upper left back swelling) Skin: Normal Neurological: Normal Endocrine: Normal Hemo/Lymphatic: Normal Psychiatric: Normal Physical Exam Vital Signs Reviewed: Yes Vital Signs Temp Pulse Resp BP Pulse Ox 05/28/17 11:50 98.7 F 86 18 110/60 98 Temperature: Afebrile Blood Pressure: Normal Pulse: Regular Respiratory Rate: Normal Appearance: Positive for: Well-Appearing, Non-Toxic, Comfortable Pain Distress: None Mental Status: Positive for: Alert and Oriented X 3 - Systems Exam Head: Present: Atraumatic, Normocephalic Pupils: Present: PERRL Extroacular Muscles: Present: EOMI Conjunctiva: Present: Normal Mouth: Present: Moist Mucous Membranes Neck: Present: Normal Range of Motion Respiratory/Chest: Present: Clear to Auscultation, Good Air Exchange. No: Respiratory Distress, Accessory Muscle Use Cardiovascular: Present: Regular Rate and Rhythm, Normal S1, S2. No: Murmurs Abdomen: Present: Normal Bowel Sounds. No: Tenderness, Distention, Peritoneal Signs Back: Present: Other (tenderness and swelling to left paravertibral muscle of the thoracic spine. Tenderness to left upper trapezius muscle.) Upper Extremity: Present: Other (tenderness with movement of left upper arm.). No: Cyanosis, Edema Lower Extremity: Present: Normal Inspection. No: Edema Neurological: Present: GCS=15, CN II-XII Intact, Speech Normal Skin: Present: Warm, Dry, Normal Color, Other (no sign of acute trauma). No: Rashes Psychiatric: Present: Alert, Oriented x 3, Normal Insight, Normal Concentration Medical Decision Making ED Course and Treatment: 05/28/17 12:31 Impression: 26 year old female presents to the Emergency department for left upper back discomfort and swelling. Plan: -- Ultram -- Dexamethasone -- Reassess and disposition Progress Notes: - Medication Orders Current Medication Orders: Discontinued Medications Dexamethasone (Decadron Inj) 10 mg IM STAT STA Stop: 05/28/17 12:15 Tramadol HCl (Ultram) 50 mg PO STAT STA Stop: 05/28/17 12:14 - Scribe Statement The provider has reviewed the documentation as recorded by the Scribe Autumn Dobson. All medical record entries made by the Scribe were at my direction and personally dictated by me. I have reviewed the chart and agree that the record accurately reflects my personal performance of the history, physical exam, medical decision making, and the department course for this patient. I have also personally directed, reviewed, and agree with the discharge instructions and disposition. Disposition/Present on Arrival - Present on Arrival Any Indicators Present on Arrival: No History of DVT/PE: No History of Uncontrolled Diabetes: No Urinary Catheter: No History of Decub. Ulcer: No History Surgical Site Infection Following: None - Disposition Have Diagnosis and Disposition been Completed?: Yes Diagnosis: Back pain, Syringomyelia Disposition: HOME/ ROUTINE Disposition Time: 12:20 Patient Plan: Discharge Patient Problems: Current Active Problems Problem Status Onset Back pain Acute Syringomyelia Acute Condition: STABLE Prescriptions: traMADol [Ultram] 50 mg PO TID PRN #30 tab PRN Reason: Pain, Moderate (4-7) Forms: [employer] (Albanian)
== END 2017-05-28 12:57 | disposition home or self-care (01) ==
LOC: ED 11:38
DX: G95.0 Syringomyelia and syringobulbia (principal); M54.9 Dorsalgia, unspecified
CPT/HCPCS: 96372; 99281; J1100

== ENCOUNTER 2017-10-26 21:26 | Emergency (ER) | payer MEDICAID ==
[2017-10-26 21:51] VITALS: RESP 18; TEMP 98.3
--- NOTE | 2017-10-26 22:30 | ED PDOC ---
Arrival/HPI - General Chief Complaint: Back Pain Time Seen by Provider: 10/26/17 21:40 Historian: Patient - History of Present Illness Narrative History of Present Illness (Text): 10/26/17 22:20 Xuan Youssef is a 27 year old female who presents to the Emergency department complaining of chronic back pain, to mid-back/upper area, over the past 2 years. Patient states medication has not been helping her, notes she was seen by a "specialist" for possible surgery which has not been done. Patient has also done physical therapy, which does not help. Patient denies any bladder dysfunction, saddles anesthesia, trauma/injury, or any other complaints. Recent MRI performed 2 months prior, showed herniations. Time/Duration: > month, Other (chronic) Symptom Onset: Gradual Symptom Course: Unchanged Activities at Onset: Light Context: Home Past Medical History - Provider Review Nursing Documentation Reviewed: Yes - Past History Past History: No Previous - Infectious Disease Hx of Infectious Diseases: None - Tetanus Immunization Tetanus Immunization: Unknown - Past Medical History Past Medical History: Non-Contributing - Cardiac Hx Cardiac Disorders: No - Pulmonary Hx Respiratory Disorders: Yes Hx Asthma: Yes - Neurological Hx Neurological Disorder: No - HEENT Hx HEENT Disorder: No - Renal Hx Renal Disorder: No - Endocrine/Metabolic Hx Endocrine Disorders: No - Hematological/Oncological Hx Blood Disorders: Yes (carries sickle cell trait) - Integumentary Hx Dermatological Disorder: No - Musculoskeletal/Rheumatological Hx Back Pain: Yes - Gastrointestinal Hx Gastrointestinal Disorders: No - Genitourinary/Gynecological Hx Genitourinary Disorders: No Other/Comment: hx of ovarian cysts - Psychiatric Hx Psychophysiologic Disorder: No Hx Substance Use: No - Surgical History Hx Section: Yes (x1) Other/Comment: ovarian cyst removal - Anesthesia Hx Anesthesia: Yes Hx Anesthesia Reactions: No Hx Malignant Hyperthermia: No - Suicidal Assessment Feels Threatened In Home Enviroment: No Family/Social History - Physician Review Nursing Documentation Reviewed: Yes Family/Social History: Unknown Family HX Smoking Status: Current Some Days Smoker Hx Alcohol Use: Yes Hx Substance Use: No Hx Substance Use Treatment: No Allergies/Home Meds Allergies/Adverse Reactions: Allergies No Known Allergies Allergy (Verified 10/26/17 21:36) Review of Systems - Physician Review All systems were reviewed & negative as marked: Yes - Review of Systems Constitutional: Normal. absent: Fevers Eyes: Normal ENT: Normal Respiratory: Normal. absent: SOB, Cough Cardiovascular: Normal. absent: Chest Pain Gastrointestinal: Normal. absent: Abdominal Pain, Diarrhea, Nausea, Vomiting Genitourinary Female: Normal. absent: Dysuria, Frequency, Hematuria, Urine Output Changes Musculoskeletal: Back Pain. absent: Neck Pain Skin: Normal. absent: Rash Neurological: Normal. absent: Headache, Dizziness Endocrine: Normal Hemo/Lymphatic: Normal Psychiatric: Normal Physical Exam Vital Signs Reviewed: Yes Vital Signs Temp Pulse Resp BP Pulse Ox 10/26/17 22:35 98.3 F 60 18 120/60 100 10/26/17 21:26 98.3 F 57 L 18 121/62 99 Temperature: Afebrile Blood Pressure: Normal Pulse: Regular Respiratory Rate: Normal Appearance: Positive for: Well-Appearing, Non-Toxic, Comfortable Pain Distress: None Mental Status: Positive for: Alert and Oriented X 3 - Systems Exam Head: Present: Atraumatic, Normocephalic Pupils: Present: PERRL Extroacular Muscles: Present: EOMI Conjunctiva: Present: Normal Mouth: Present: Moist Mucous Membranes Neck: Present: Normal Range of Motion Respiratory/Chest: Present: Clear to Auscultation, Good Air Exchange. No: Respiratory Distress, Accessory Muscle Use Cardiovascular: Present: Regular Rate and Rhythm, Normal S1, S2. No: Murmurs Abdomen: No: Tenderness, Distention, Peritoneal Signs Back: Present: Other (Diffuse hypertonicity to upper and mid back). No: Midline Tenderness, Paraspinal Tenderness Upper Extremity: Present: Normal Inspection. No: Cyanosis, Edema Lower Extremity: Present: Normal Inspection. No: Edema Neurological: Present: GCS=15, CN II-XII Intact, Speech Normal Skin: Present: Warm, Dry, Normal Color. No: Rashes Psychiatric: Present: Alert, Oriented x 3, Normal Insight, Normal Concentration Medical Decision Making ED Course and Treatment: 10/26/17 22:20 Impression: 27 year old female complaining of chronic mid/upper back for 2 years, denies any relief with pain medications. Plan: -- Toradol -- Prednisone -- Reassess and disposition Progress Notes: On re-evaluation, patient is in no acute distress. I have discussed the results and plan with the patient, who expresses understanding. Patient in agreement with plan to be discharged home. Patient is stable for discharge. Patient was instructed to follow up with physician or return if symptoms worsen or new concerning symptoms arise. - Medication Orders Current Medication Orders: Discontinued Medications Ketorolac Tromethamine (Toradol) 60 mg IM STAT STA Stop: 10/26/17 22:09 Last Admin: 10/26/17 22:19 Dose: 60 mg MAR Pain Assessment Document 10/26/17 22:19 LA (Rec: 10/26/17 22:19 LA [email or web address]) Pain Reassessment Is this a pain reassessment? No Sleep Is patient sleeping during reassessment? No Presence of Pain Presence of Pain Yes Pain Scale Used Pain Scale Used Numeric Location Upper or Lower Upper Pain Location Body Site Back Description Description Constant Intensity of Pain at present 5 IM Administration Charges Document 10/26/17 22:19 LA (Rec: 10/26/17 22:19 LA [id number] Charges for Administration # of IM Administrations 1 Prednisone (Prednisone Tab) 60 mg PO STAT ONE Stop: 10/26/17 22:09 Last Admin: 10/26/17: Dose: 60 mg - Scribe Statement The provider has reviewed the documentation as recorded by the Scribrandi Pappas All medical record entries made by the Magaly were at my direction and personally dictated by me. I have reviewed the chart and agree that the record accurately reflects my personal performance of the history, physical exam, medical decision making, and the department course for this patient. I have also personally directed, reviewed, and agree with the discharge instructions and disposition. Disposition/Present on Arrival - Present on Arrival Any Indicators Present on Arrival: No History of DVT/PE: No History of Uncontrolled Diabetes: No Urinary Catheter: No History of Decub. Ulcer: No History Surgical Site Infection Following: None - Disposition Have Diagnosis and Disposition been Completed?: Yes Diagnosis: Chronic back pain Disposition: HOME/ ROUTINE Disposition Time: 21:20 Condition: GOOD Discharge Instructions (ExitCare): Chronic Pain (DC) Additional Instructions: XUAN YOUSSEF, thank you for letting us take care of you today. Your provider was Guilherme Bell DO and you were treated for BACK PAIN. The emergency medical care you received today was directed at your acute symptoms. If you were prescribed any medication, please fill it and take as directed. It may take several days for your symptoms to resolve. Return to the Emergency Department if your symptoms worsen, do not improve, or if you have any other problems. Please contact your doctor or call one of the physicians/clinics you have been referred to that are listed on the Patient Visit Information form that is included in your discharge packet. Bring any paperwork you were given at discharge with you along with any medications you are taking to your follow up visit. Our treatment cannot replace ongoing medical care by a primary care provider outside of the emergency department. Thank you for allowing the [facility] team to be part of your care today. Continue to take your pain medication already prescribed. Follow up with Dr. Fang in 2-3 days for re-evaluation and further management. Prescriptions: predniSONE [Prednisone] 40 mg PO DAILY #10 tab Referrals: Royer Fang MD [Family Provider] - Follow up with primary Forms: [employer] (Japanese)
[2017-10-26 22:35] VITALS: BP 120/60; PULSE 60; O2SAT 100
== END 2017-10-26 22:35 | disposition home or self-care (01) ==
LOC: ED 21:26
DX: G89.29 Other chronic pain (principal); M54.9 Dorsalgia, unspecified
CPT/HCPCS: 96372; 99283; J1885

== ENCOUNTER 2018-01-08 23:56 | Emergency (ER) | payer MEDICAID ==
[2018-01-09 00:41] VITALS: BMI 27.7
[2018-01-09] MEDS ORDERED: Sodium Chloride 0.9% 1,000 ML IV STA (01:02)
--- NOTE | 2018-01-09 01:07 | ED PDOC ---
Arrival/HPI - General Chief Complaint: GI Problem Time Seen by Provider: 01/08/18 23:59 Historian: Patient - History of Present Illness Narrative History of Present Illness (Text): 01/09/18 01:00 27 year old female, whose past medical history includes Asthma and chronic back pains secondary to herniated disc, presents to the emergency department complaining of burning upper back discomfort. Patient states she gets these pains from time to time. Patient denies any history of any trauma. Patient also states she has been feeling nauseous at times, but denies any fever, chills, chest pain, shortness of breath, abdominal pain, vomiting, diarrhea, urinary symptoms, neck pain, headache, dizziness, or any other complaints. Symptom Onset: Gradual Symptom Course: Unchanged Quality: Burning Activities at Onset: Light Context: Home Past Medical History - Provider Review Nursing Documentation Reviewed: Yes - Past History Past History: No Previous - Infectious Disease Hx of Infectious Diseases: None - Tetanus Immunization Tetanus Immunization: Unknown - Past Medical History Past Medical History: Non-Contributing - Cardiac Hx Cardiac Disorders: No - Pulmonary Hx Respiratory Disorders: Yes Hx Asthma: Yes - Neurological Hx Neurological Disorder: No - HEENT Hx HEENT Disorder: No - Renal Hx Renal Disorder: No - Endocrine/Metabolic Hx Endocrine Disorders: No - Hematological/Oncological Hx Blood Disorders: Yes (carries sickle cell trait) - Integumentary Hx Dermatological Disorder: No - Musculoskeletal/Rheumatological Hx Back Pain: Yes - Gastrointestinal Hx Gastrointestinal Disorders: No - Genitourinary/Gynecological Hx Genitourinary Disorders: No Other/Comment: hx of ovarian cysts - Psychiatric Hx Psychophysiologic Disorder: No Hx Substance Use: No - Surgical History Hx Section: Yes (x1) Other/Comment: ovarian cyst removal - Anesthesia Hx Anesthesia: Yes Hx Anesthesia Reactions: No Hx Malignant Hyperthermia: No - Suicidal Assessment Feels Threatened In Home Enviroment: No Family/Social History - Physician Review Nursing Documentation Reviewed: Yes Family/Social History: No Known Family HX Smoking Status: Current Some Days Smoker Hx Alcohol Use: Yes Hx Substance Use: No Hx Substance Use Treatment: No Allergies/Home Meds Allergies/Adverse Reactions: Allergies No Known Allergies Allergy (Verified 01/09/18 00:42) Review of Systems - Physician Review All systems were reviewed & negative as marked: Yes - Review of Systems Constitutional: absent: Fevers, Other (Chills) Respiratory: absent: SOB Cardiovascular: absent: Chest Pain Gastrointestinal: Nausea. absent: Abdominal Pain, Diarrhea Genitourinary Female: absent: Dysuria, Frequency, Hematuria Musculoskeletal: Back Pain. absent: Neck Pain Neurological: absent: Headache, Dizziness Physical Exam Vital Signs Reviewed: Yes Appearance: Positive for: Well-Appearing, Non-Toxic, Comfortable Pain Distress: None Mental Status: Positive for: Alert and Oriented X 3 - Systems Exam Head: Present: Atraumatic, Normocephalic Pupils: Present: PERRL Extroacular Muscles: Present: EOMI Conjunctiva: Present: Normal Mouth: Present: Moist Mucous Membranes Neck: Present: Normal Range of Motion Respiratory/Chest: Present: Clear to Auscultation, Good Air Exchange. No: Respiratory Distress, Accessory Muscle Use Cardiovascular: Present: Regular Rate and Rhythm, Normal S1, S2. No: Murmurs Abdomen: No: Tenderness, Distention, Peritoneal Signs Back: Present: Normal Inspection. No: Paraspinal Tenderness, Other ( Dorsalspinal tenderness) Upper Extremity: Present: Normal Inspection. No: Cyanosis, Edema Lower Extremity: Present: Normal Inspection. No: Edema Neurological: Present: GCS=15, CN II-XII Intact, Speech Normal Skin: Present: Warm, Dry, Normal Color. No: Rashes Psychiatric: Present: Alert, Oriented x 3, Normal Insight, Normal Concentration Medical Decision Making ED Course and Treatment: 01/09/18 01:00 Impression: 28 year old female presents complaining of burning upper back discomfort associated with some nausea. Plan: -- Labs -- IV Fluids, Toradol, Zofran Inj -- Urinalysis -- Reassess and disposition Prior Visits: Notes and results from previous visits were reviewed. Progress Notes: 01/09/18 03:19 On re-evaluation, patient feels better and is in no acute distress. I have discussed the results and plan with the patient, who expresses understanding. Patient in agreement with plan to be discharged home. Patient is stable for discharge. Patient was instructed to follow up with physician or return if symptoms worsen or new concerning symptoms arise. - Lab Interpretations Lab Results: 01/09/18 01:12 01/09/18 01:12 Lab Results 01/09/18 01:12: Sodium 140, Potassium 4.1, Chloride 104, Carbon Dioxide 27, Anion Gap 13, BUN 11, Creatinine 0.9, Est GFR ( Amer) > 60, Est GFR (Non- Af Amer) > 60, Random Glucose 96, Calcium 9.6 01/09/18 01:12: WBC 9.1 D, RBC 4.36, Hgb 11.6 L, Hct 33.6 L, MCV 77.1 L, MCH 26.6, MCHC 34.5, RDW 13.6, Plt Count 222, MPV 11.3 H I have reviewed the lab results: Yes - Medication Orders Current Medication Orders: Discontinued Medications Sodium Chloride (Sodium Chloride 0.9%) 1,000 mls @ 999 mls/hr IV .Q1H1M STA Stop: 01/09/18 02:02 Last Admin: 01/09/18 01:39 Dose: 999 mls/hr eMAR Start Stop Document 01/09/18 01:39 SS (Rec: 01/09/18 01:40 SS [id number]) Intravenous Solution Start Date 01/09/18 Start Time 01:39 End Date 01/09/18 End time 02:39 Total Infusion Time 60 Ketorolac Tromethamine (Toradol) 30 mg IVP ONCE ONE Stop: 01/09/18 01:03 Last Admin: 01/09/18 01:40 Dose: 30 mg MAR Pain Assessment Document 01/09/18 01:40 SS (Rec: 01/09/18 01:40 SS [id number]) Pain Reassessment Is this a pain reassessment? No Sleep Is patient sleeping during reassessment? No Presence of Pain Presence of Pain Yes IVP Administration Document 01/09/18 01:40 SS (Rec: 01/09/18 01:40 SS [id number]) Charges for Administration # of IVP Administrations 1 Ondansetron HCl (Zofran Inj) 4 mg IVP ONCE ONE Stop: 01/09/18 01:03 Last Admin: 01/09/18 01:40 Dose: 4 mg IVP Administration Document 01/09/18 01:40 SS (Rec: 01/09/18 01:40 SS [id number]) Charges for Administration # of IVP Administrations 1 - Scribe Statement The provider has reviewed the documentation as recorded by the Magaly Ledbetter Provider Jose Aibe Attestation: All medical record entries made by the Jose Aibrandi were at my direction and personally dictated by me. I have reviewed the chart and agree that the record accurately reflects my personal performance of the history, physical exam, medical decision making, and the department course for this patient. I have also personally directed, reviewed, and agree with the discharge instructions and disposition. Disposition/Present on Arrival - Present on Arrival Any Indicators Present on Arrival: No History of DVT/PE: No History of Uncontrolled Diabetes: No Urinary Catheter: No History of Decub. Ulcer: No History Surgical Site Infection Following: None - Disposition Have Diagnosis and Disposition been Completed?: Yes Diagnosis: Back pain, Nausea Disposition: HOME/ ROUTINE Disposition Time: 03:16 Patient Plan: Discharge Patient Problems: Current Active Problems Problem Status Onset Back pain Acute Nausea Acute Condition: GOOD Discharge Instructions (ExitCare): Upper Back Pain (DC), Nausea and Vomiting, Adult (DC) Additional Instructions: Take meds as prescribed/advance bland diet next couple of days/follow up with your doctor this week Prescriptions: Naproxen [Naprosyn Tab] 375 mg PO BID PRN #12 tab PRN Reason: Pain, Moderate (4-7) Ondansetron [Zofran Odt] 4 mg PO Q6 PRN #12 odt PRN Reason: Nausea/Vomiting Referrals: Royer Fang MD [Primary Care Provider] - Follow up with primary Forms: [employer] (Turkish)
[2018-01-09 02:06] LABS: BLOOD UREA NITROGEN 11 mg/dL (7-21); CALCIUM 9.6 mg/dL (8.4-10.5); GFR NON-AFRICAN AMERICAN > 60
[2018-01-09 02:13] LABS: HEMOGLOBIN 11.6 g/dL (12.0-16.0); MEAN CELL VOLUME 77.1 fl (80.0-105.0); MEAN CORPUSCULAR HEMOGLOBIN 26.6 pg (25.0-35.0); MEAN CORPUSCULAR HGB CONC 34.5 g/dl (31.0-37.0); MEAN PLATELET VOLUME 11.3 fl (7.0-11.0); RBC 4.36 10^6/uL (3.5-6.1); RED CELL DISTRIBUTION WIDTH 13.6 % (11.5-14.5); WHITE BLOOD COUNT 9.1 10^3/ul (4.5-11.0)
[2018-01-09 03:26] VITALS: BP 129/70; PULSE 86; RESP 18
[2018-01-09 03:35] VITALS: O2SAT 97
[2018-01-09 03:49] LABS: PH,URINE 6.5 (4.7-8.0); URINE BILIRUBIN NEGATIVE (NEGATIVE); URINE BLOOD NEGATIVE (NEGATIVE); URINE GLUCOSE (UA) NEGATIVE (NEGATIVE); URINE LEUKOCYTE ESTERASE MODERATE Leu/uL (NEGATIVE); URINE PROTEIN NEGATIVE mg/dL (<30 mg/dL); URINE UROBILINOGEN 0.2 E.U./dL (<1 E.U./dL)
[2018-01-09 03:50] LABS: URINE APPEARANCE SL CLOUDY (CLEAR); URINE COLOR YELLOW (YELLOW)
[2018-01-09 04:03] LABS: URINE BACTERIA SMALL (NEG); URINE RBC 0 - 2 /hpf (0-2); URINE WBC 15 - 20 /hpf (0-6)
== END 2018-01-09 03:34 | disposition home or self-care (01) ==
LOC: ED 23:56
DX: M54.9 Dorsalgia, unspecified (principal); R11.0 Nausea
CPT/HCPCS: 80048; 81001; 85027; 87086; 96361; 96374; 96375; 99283; J1885; J2405; J7030

== ENCOUNTER 2018-05-11 11:36 | Emergency (ER) | payer MEDICAID ==
[2018-05-11 11:39] VITALS: BMI 24.3
[2018-05-11 11:43] VITALS: RESP 18; TEMP 98.3; O2SAT 99
--- NOTE | 2018-05-11 12:03 | ED PDOC ---
Arrival/HPI - General Chief Complaint: Trauma Time Seen by Provider: 05/11/18 11:53 Historian: Patient - History of Present Illness Narrative History of Present Illness (Text): 05/11/18 11:54 27 y/o female, pmh including anemia, nkda, c/o headache/dizziness/neck and upper back pain s/p fall while going down the stair. Pt. stated that she slipped, fall on the posterior head/neck/back region, been having pain with dizziness whe n pain is severe, not dizziness now, no change in vision, non-radiating pain, no urinary or bowel incontinence/retention, no night sweat, no rash, no other medical or psychological complaints. Past Medical History - Provider Review Nursing Documentation Reviewed: Yes - Past History Past History: No Previous - Infectious Disease Hx of Infectious Diseases: None - Tetanus Immunization Tetanus Immunization: Unknown - Past Medical History Past Medical History: Non-Contributing - Cardiac Hx Cardiac Disorders: No - Pulmonary Hx Respiratory Disorders: Yes Hx Asthma: Yes - Neurological Hx Neurological Disorder: No - HEENT Hx HEENT Disorder: No - Renal Hx Renal Disorder: No - Endocrine/Metabolic Hx Endocrine Disorders: No - Hematological/Oncological Hx Blood Disorders: Yes (carries sickle cell trait) - Integumentary Hx Dermatological Disorder: No - Musculoskeletal/Rheumatological Hx Back Pain: Yes - Gastrointestinal Hx Gastrointestinal Disorders: No - Genitourinary/Gynecological Hx Genitourinary Disorders: No Other/Comment: hx of ovarian cysts - Psychiatric Hx Psychophysiologic Disorder: No Hx Substance Use: No - Surgical History Hx Section: Yes (x1) Other/Comment: ovarian cyst removal - Anesthesia Hx Anesthesia: Yes Hx Anesthesia Reactions: No Hx Malignant Hyperthermia: No - Suicidal Assessment Feels Threatened In Home Enviroment: No Family/Social History - Physician Review Nursing Documentation Reviewed: Yes Family/Social History: Unknown Family HX Smoking Status: Never Smoked Hx Alcohol Use: Yes Frequency of alcohol use: Socially Hx Substance Use: No Hx Substance Use Treatment: No Allergies/Home Meds Allergies/Adverse Reactions: Allergies No Known Allergies Allergy (Verified 01/09/18 00:42) Review of Systems - Review of Systems Constitutional: absent: Fatigue, Fevers Eyes: absent: Vision Changes ENT: absent: Hearing Changes Respiratory: absent: SOB, Cough Cardiovascular: absent: Chest Pain Gastrointestinal: absent: Abdominal Pain, Diarrhea, Nausea, Vomiting Musculoskeletal: Back Pain, Neck Pain. absent: Arthralgias, Joint Swelling, Myalgias Skin: absent: Rash, Pruritis Neurological: Headache, Dizziness Psychiatric: absent: Anxiety, Depression Physical Exam Vital Signs Reviewed: Yes Vital Signs Temp Pulse Resp BP Pulse Ox 05/11/18 11:42 98.3 F 85 18 105/66 99 Temperature: Afebrile Blood Pressure: Normal Pulse: Regular Respiratory Rate: Normal Appearance: Positive for: Well-Appearing, Non-Toxic, Comfortable Pain Distress: Mild Mental Status: Positive for: Alert and Oriented X 3 - Systems Exam Head: Present: Atraumatic, Normocephalic Pupils: Present: PERRL Extroacular Muscles: Present: EOMI Conjunctiva: Present: Normal Mouth: Present: Moist Mucous Membranes Neck: Present: Normal Range of Motion, Paraspinal Tenderness (paraspinal muscle region but no step off), Trachea Midline. No: Meningeal Signs, MIDLINE TENDERNESS, Lymphadenopathy Respiratory/Chest: Present: Clear to Auscultation, Good Air Exchange. No: Respiratory Distress, Accessory Muscle Use, Wheezes, Decreased Breath Sounds, Rales, Retracting, Rhonchi, Tachypneic, Tender to Palpation Cardiovascular: Present: Regular Rate and Rhythm, Normal S1, S2. No: Murmurs Abdomen: No: Tenderness, Distention, Peritoneal Signs Back: Present: Normal Inspection, Paraspinal Tenderness (Thoracic to LS spine: +ttp on the rt. paraspinal muscle region of upper thoracic, no LS spine tenderness or step off, FROM without limitation, sensation intact, motror 5/5, no saddling gait. ). No: CVA Tenderness, Midline Tenderness Upper Extremity: Present: Normal Inspection. No: Cyanosis, Edema Lower Extremity: Present: Normal Inspection. No: Edema Neurological: Present: GCS=15, CN II-XII Intact, Speech Normal Skin: Present: Warm, Dry, Normal Color. No: Rashes Psychiatric: Present: Alert, Oriented x 3, Normal Insight, Normal Concentration Medical Decision Making ED Course and Treatment: 05/11/18 12:12 -xray/ct -tylenol -observe and reasses 05/11/18 14:01 -Urine hcg is negative -CT head No acute intracranial hemorrhage. Suspect minor left posterior superior parietal scalp swelling. -Cervical spine xray: Normal cervical spine radiographs -Thoracic spine xray Normal radiographs of the thoracic spine. -Chest xray: No active disease. -Pt. feels well, no complaint/dizziness at this time, will discharge home. -Discharge home with naproxen, meclizine, bed rest, follow up with your own pmd and orthopedic/neurologist within 2 days, return to the ER for any new or worsening signs or symptoms. - RAD Interpretation Radiology Orders: -CT head Date of service: 05/11/2018 PROCEDURE: CT HEAD WITHOUT CONTRAST. HISTORY: Fall, injury, dizziness COMPARISON: None available. TECHNIQUE: Axial computed tomography images were obtained through the head/brain without intravenous contrast. Radiation dose: Total exam DLP = 836.9 mGy-cm. This CT exam was performed using one or more of the following dose reduction techniques: Automated exposure control, adjustment of the mA and/or kV according to patient size, and/or use of iterative reconstruction technique. FINDINGS: HEMORRHAGE: No acute parenchymal, subarachnoid or extra-axial hemorrhage. BRAIN: No mass effect or edema. No atrophy or chronic microvascular ischemic changes. VENTRICLES: Unremarkable. No hydrocephalus. CALVARIUM: No acute calvarial fractures. Suspect minor left posterior superior parietal scalp swelling PARANASAL SINUSES: Frontal sinuses are underpneumatized/hypoplastic although clear.. Remaining visualized paranasal sinuses are clear MASTOID AIR CELLS: Unremarkable as visualized. No inflammatory changes. OTHER FINDINGS: None. IMPRESSION: No acute intracranial hemorrhage. Suspect minor left posterior superior parietal scalp swelling. -Cervical spine xray Date of service: 05/11/2018 PROCEDURE: Cervical Spine Radiographs. HISTORY: Pain. COMPARISON: None available. FINDINGS: BONES: Alignment maintained. No fracture. Dens Intact. DISC SPACES: Normal. SOFT TISSUES: Normal. No prevertebral soft tissue swelling. OTHER FINDINGS: None. IMPRESSION: Normal cervical spine radiographs -Thoracic spine xray Date of service: 05/11/2018 HISTORY: fall, pain COMPARISON: No prior. FINDINGS: BONES: Alignment maintained. No fracture. DISC SPACES: Normal. SOFT TISSUES: Normal. OTHER FINDINGS: None. IMPRESSION: Normal radiographs of the thoracic spine. -Chest xray: Date of service: 05/11/2018 HISTORY: fall COMPARISON: No prior. TECHNIQUE: Chest PA and lateral FINDINGS: LUNGS: No active pulmonary disease. PLEURA: No significant pleural effusion identified. No pneumothorax apparent. CARDIOVASCULAR: No aortic atherosclerotic calcification present. Normal cardiac size. No pulmonary vascular congestion. OSSEOUS STRUCTURES: No significant abnormalities. VISUALIZED UPPER ABDOMEN: Normal. OTHER FINDINGS: None. IMPRESSION: No active disease. [employer] Canning Leader: Radiologist - PA / LIMOUSINE DRIVER / Resident Statement / has reviewed & agrees with the documentation as recorded. Disposition/Present on Arrival - Present on Arrival Any Indicators Present on Arrival: No History of DVT/PE: No History of Uncontrolled Diabetes: No Urinary Catheter: No History of Decub. Ulcer: No History Surgical Site Infection Following: None - Disposition Have Diagnosis and Disposition been Completed?: Yes Diagnosis: Fall, Head injury, Injury of back of neck, Dizziness Disposition: HOME/ ROUTINE Disposition Time: 14:02 Patient Plan: Discharge Condition: IMPROVED Additional Instructions: -Discharge home with naproxen, meclizine, bed rest, follow up with your own pmd and orthopedic/neurologist within 2 days, return to the ER for any new or worsening signs or symptoms. Prescriptions: Meclizine [Meclizine*] 25 mg PO Q6 #30 tab Naproxen 500 mg PO BID PRN #20 tablet PRN Reason: Other Referrals: Royer Fang MD [Primary Care Provider] - Follow up with primary Marco Mcpherson MD [Staff Provider] - Follow up with primary Kristian Rivas III, MD [Medical Doctor] - Follow up with primary Forms: [employer] (Cam[place]onian), WORK NOTE
--- NOTE | 2018-05-11 12:41 | CT ---
Date of service: 05/11/2018 PROCEDURE: CT HEAD WITHOUT CONTRAST. HISTORY: Fall, injury, dizziness COMPARISON: None available. TECHNIQUE: Axial computed tomography images were obtained through the head/brain without intravenous contrast. Radiation dose: Total exam DLP = 836.9 mGy-cm. This CT exam was performed using one or more of the following dose reduction techniques: Automated exposure control, adjustment of the mA and/or kV according to patient size, and/or use of iterative reconstruction technique. FINDINGS: HEMORRHAGE: No acute parenchymal, subarachnoid or extra-axial hemorrhage. BRAIN: No mass effect or edema. No atrophy or chronic microvascular ischemic changes. VENTRICLES: Unremarkable. No hydrocephalus. CALVARIUM: No acute calvarial fractures. Suspect minor left posterior superior parietal scalp swelling PARANASAL SINUSES: Frontal sinuses are underpneumatized/hypoplastic although clear.. Remaining visualized paranasal sinuses are clear MASTOID AIR CELLS: Unremarkable as visualized. No inflammatory changes. OTHER FINDINGS: None. IMPRESSION: No acute intracranial hemorrhage. Suspect minor left posterior superior parietal scalp swelling.
--- NOTE | 2018-05-11 13:41 | RAD ---
Date of service: 05/11/2018 HISTORY: fall COMPARISON: No prior. TECHNIQUE: Chest PA and lateral FINDINGS: LUNGS: No active pulmonary disease. PLEURA: No significant pleural effusion identified. No pneumothorax apparent. CARDIOVASCULAR: No aortic atherosclerotic calcification present. Normal cardiac size. No pulmonary vascular congestion. OSSEOUS STRUCTURES: No significant abnormalities. VISUALIZED UPPER ABDOMEN: Normal. OTHER FINDINGS: None. IMPRESSION: No active disease.
--- NOTE | 2018-05-11 13:42 | RAD ---
Date of service: 05/11/2018 HISTORY: fall, pain COMPARISON: No prior. FINDINGS: BONES: Alignment maintained. No fracture. DISC SPACES: Normal. SOFT TISSUES: Normal. OTHER FINDINGS: None. IMPRESSION: Normal radiographs of the thoracic spine.
--- NOTE | 2018-05-11 13:42 | RAD ---
Date of service: 05/11/2018 PROCEDURE: Cervical Spine Radiographs. HISTORY: Pain. COMPARISON: None available. FINDINGS: BONES: Alignment maintained. No fracture. Dens Intact. DISC SPACES: Normal. SOFT TISSUES: Normal. No prevertebral soft tissue swelling. OTHER FINDINGS: None. IMPRESSION: Normal cervical spine radiographs
[2018-05-11 14:13] VITALS: BP 106/72; PULSE 80
== END 2018-05-11 14:19 | disposition home or self-care (01) ==
LOC: ED 11:36
DX: R42 Dizziness and giddiness (principal); S19.9XXA Unspecified injury of neck, initial encounter; W10.9XXA Fall (on) (from) unspecified stairs and steps, initial encounter

== ENCOUNTER 2018-07-13 09:03 | Emergency (ER) | payer MEDICAID ==
[2018-07-13 09:04] VITALS: BMI 24.3
[2018-07-13 09:59] VITALS: RESP 18
--- NOTE | 2018-07-13 10:20 | ED PDOC ---
Arrival/HPI - General Chief Complaint: Abdominal Pain Historian: Patient - History of Present Illness Narrative History of Present Illness (Text): 07/13/18 10:20 27 y/o female, pmh including ovarian cyst/anemia and pylonephritis, nkda, c/o rt. pelvic pain x 2 days. Aching pain, on and off, feels like her ovarian cyst pain, started 2 days ago, no nausea or vomiting, no abdominal pain, no vaginal bleeding or discharge (pt. disagreed with triage), eating and drinking well, no diarrhea, no palpitation, no chest pain or shortness of breath, no flank pain, no other medical or psychological complaints. Past Medical History - Provider Review Nursing Documentation Reviewed: Yes - Past History Past History: No Previous - Infectious Disease Hx of Infectious Diseases: None - Tetanus Immunization Tetanus Immunization: Unknown - Past Medical History Past Medical History: Non-Contributing - Cardiac Hx Cardiac Disorders: No - Pulmonary Hx Respiratory Disorders: Yes Hx Asthma: Yes - Neurological Hx Neurological Disorder: No - HEENT Hx HEENT Disorder: No - Renal Hx Renal Disorder: No - Endocrine/Metabolic Hx Endocrine Disorders: No - Hematological/Oncological Hx Blood Disorders: Yes (carries sickle cell trait) - Integumentary Hx Dermatological Disorder: No - Musculoskeletal/Rheumatological Hx Back Pain: Yes - Gastrointestinal Hx Gastrointestinal Disorders: No - Genitourinary/Gynecological Hx Genitourinary Disorders: No Other/Comment: hx of ovarian cysts - Psychiatric Hx Psychophysiologic Disorder: No Hx Substance Use: No - Surgical History Hx Section: Yes (x1) Other/Comment: ovarian cyst removal - Anesthesia Hx Anesthesia: Yes Hx Anesthesia Reactions: No Hx Malignant Hyperthermia: No - Suicidal Assessment Feels Threatened In Home Enviroment: No Family/Social History - Physician Review Nursing Documentation Reviewed: Yes Family/Social History: Unknown Family HX Smoking Status: Never Smoked Hx Alcohol Use: Yes Hx Substance Use: No Hx Substance Use Treatment: No Allergies/Home Meds Allergies/Adverse Reactions: Allergies No Known Allergies Allergy (Verified 07/13/18 09:59) Review of Systems - Review of Systems Constitutional: absent: Fatigue, Fevers Eyes: absent: Vision Changes ENT: absent: Hearing Changes Respiratory: absent: SOB, Cough Cardiovascular: absent: Chest Pain Gastrointestinal: Other (rt. pelvic pain). absent: Abdominal Pain, Nausea, Vomiting Genitourinary Female: absent: Dysuria, Frequency Skin: absent: Rash, Pruritis Neurological: absent: Headache, Dizziness Psychiatric: absent: Anxiety, Depression, Suicidal Ideation Physical Exam Vital Signs Reviewed: Yes Vital Signs Temp Pulse Resp BP Pulse Ox 07/13/18 09:30 98.6 F 84 18 104/70 98 Temperature: Afebrile Blood Pressure: Normal Pulse: Regular Respiratory Rate: Normal Appearance: Positive for: Well-Appearing, Non-Toxic, Comfortable Pain Distress: Moderate Mental Status: Positive for: Alert and Oriented X 3 - Systems Exam Head: Present: Atraumatic, Normocephalic Pupils: Present: PERRL Extroacular Muscles: Present: EOMI Conjunctiva: Present: Normal Mouth: Present: Moist Mucous Membranes Neck: Present: Normal Range of Motion Respiratory/Chest: Present: Clear to Auscultation, Good Air Exchange. No: Respiratory Distress, Accessory Muscle Use Cardiovascular: Present: Regular Rate and Rhythm, Normal S1, S2. No: Murmurs Abdomen: Present: Normal Bowel Sounds. No: Tenderness, Distention, Peritoneal Signs, Rebound, Guarding, McBurney's Point Tender, Rovsing's Sign Present, Hernias, Mass/Organomegaly Genitourinary/Pelvic Exam: Present: Other (Pt. declined pelvic. ) Back: Present: Normal Inspection Upper Extremity: Present: Normal Inspection. No: Cyanosis, Edema Lower Extremity: Present: Normal Inspection. No: Edema Neurological: Present: GCS=15, CN II-XII Intact, Speech Normal, Motor Func Grossly Intact, Normal Cerebellar Funct, Gait Normal, Memory Normal Skin: Present: Warm, Dry, Normal Color. No: Rashes Psychiatric: Present: Alert, Oriented x 3, Normal Insight, Normal Concentration Medical Decision Making ED Course and Treatment: 07/13/18 10:55 -Labs -UA -Sonogram -Toradol IM 07/13/18 14:19 -Urine hcg is negative -Labs are nonsignificant -UA show +UTI -Sonogram Bilateral complex ovarian cysts, left larger than right. Recommend follow-up transvaginal pelvic ultrasound examination in 8-12 weeks. No other significant abnormality. -Pt. feels pain resolved, discussed the result with her and she said she has her obgyn to follow up. -I discussed the result with obgyn ui application developer Dr. Zepeda, he recommend to discharge home with telling the patient to see her own obgyn. -Discharge home with macrobid, motrin, copy of the sonogram report, follow up with your own pmd and obgyn within 2 days, return to the ER for any new or worsening signs or symptoms. - RAD Interpretation Radiology Orders: Date of service: 07/13/2018 HISTORY: rt. pelvic pain COMPARISON: None available. TECHNIQUE: Transabdominal and transvaginal FINDINGS: UTERUS: Measures 8.4 x 4.0 x 5.8 cm. Uterus retroverted. No uterine mass. ENDOMETRIUM: Measures 17 mm in diameter. Unremarkable. CERVIX: Trace endocervical and endovaginal fluid RIGHT OVARY: Measures cm. No solid mass. Normal flow. Minimally complex right ovarian cyst, 2.5 x 2.6 x 4.3 cm, with some low-level internal echoes. LEFT OVARY: Measures 3.0 x 3.4 x 2.0 cm. No solid mass. Normal flow. Complex cyst with partially thickened wall and some internal septation, 2.9 x 5.3 x 5.6 cm. FREE FLUID: No significant free fluid noted. OTHER FINDINGS: None. IMPRESSION: Bilateral complex ovarian cysts, left larger than right. Recommend follow-up transvaginal pelvic ultrasound examination in 8-12 weeks. No other significant abnormality. Hotel Baggage Handler: Radiologist - PA / FURNITURE DESIGNER / Resident Statement / has reviewed & agrees with the documentation as recorded. Disposition/Present on Arrival - Present on Arrival Any Indicators Present on Arrival: No History of DVT/PE: No History of Uncontrolled Diabetes: No Urinary Catheter: No History of Decub. Ulcer: No History Surgical Site Infection Following: None - Disposition Have Diagnosis and Disposition been Completed?: Yes Diagnosis: Ovarian cyst, UTI (urinary tract infection) Disposition: HOME/ ROUTINE Disposition Time: 14:20 Patient Plan: Discharge Condition: IMPROVED Discharge Instructions (ExitCare): Ovarian Cysts Additional Instructions: -Discharge home with macrobid, motrin, copy of the sonogram report, follow up with your own pmd and obgyn within 2 days, return to the ER for any new or worsening signs or symptoms. Prescriptions: Ibuprofen [Motrin] 600 mg PO QID PRN #30 tab PRN Reason: Other Nitrofurantoin Macrocrystals [Macrobid] 100 mg PO BID #14 cap Referrals: Stalin Zepeda MD [Staff Provider] - Follow up with primary [facility] [place] [Outside] - Follow up with primary Forms: [employer] (Portuguese), WORK NOTE
[2018-07-13 10:48] LABS: URINE BILIRUBIN NEGATIVE (NEGATIVE); URINE BLOOD NEGATIVE (NEGATIVE); URINE GLUCOSE (UA) NEGATIVE (NEGATIVE); URINE LEUKOCYTE ESTERASE TRACE Leu/uL (NEGATIVE); URINE PROTEIN NEGATIVE mg/dL (<30 mg/dL); URINE UROBILINOGEN 0.2 E.U./dL (<1 E.U./dL)
[2018-07-13 10:52] LABS: URINE APPEARANCE CLEAR (CLEAR); URINE COLOR YELLOW (YELLOW)
[2018-07-13 11:10] LABS: URINE BACTERIA FEW /hpf; URINE RBC 0 - 2 /hpf (0-2)
[2018-07-13 11:29] LABS: BASO # 0.02 K/mm3 (0.0-2.0); BASO % 0.3 % (0.0-3.0); EOS # 0.2 (0.0-0.7); HEMOGLOBIN 12.1 g/dL (12.0-16.0); LYMPH # 1.1 (1.2-3.4); LYMPH % 18.5 % (22.0-35.0); MEAN CELL VOLUME 79.3 fl (80.0-105.0); MEAN CORPUSCULAR HEMOGLOBIN 26.7 pg (25.0-35.0); MEAN CORPUSCULAR HGB CONC 33.6 g/dl (31.0-37.0); MEAN PLATELET VOLUME 10.2 fl (7.0-11.0); MONO # 0.3 (0.1-0.6); RBC 4.54 10^6/uL (3.5-6.1); RED CELL DISTRIBUTION WIDTH 13.8 % (11.5-14.5)
[2018-07-13 11:36] LABS: ALBUMIN 3.9 g/dL (3.0-4.8); ALT/SGPT 11 U/L (7-56); AST/SGOT 19 U/L (14-36); BLOOD UREA NITROGEN 10 mg/dL (7-21); CALCIUM 9.5 mg/dL (8.4-10.5); GFR NON-AFRICAN AMERICAN > 60
--- NOTE | 2018-07-13 13:05 | US ---
Date of service: 07/13/2018 HISTORY: rt. pelvic pain COMPARISON: None available. TECHNIQUE: Transabdominal and transvaginal FINDINGS: UTERUS: Measures 8.4 x 4.0 x 5.8 cm. Uterus retroverted. No uterine mass. ENDOMETRIUM: Measures 17 mm in diameter. Unremarkable. CERVIX: Trace endocervical and endovaginal fluid RIGHT OVARY: Measures cm. No solid mass. Normal flow. Minimally complex right ovarian cyst, 2.5 x 2.6 x 4.3 cm, with some low-level internal echoes. LEFT OVARY: Measures 3.0 x 3.4 x 2.0 cm. No solid mass. Normal flow. Complex cyst with partially thickened wall and some internal septation, 2.9 x 5.3 x 5.6 cm. FREE FLUID: No significant free fluid noted. OTHER FINDINGS: None. IMPRESSION: Bilateral complex ovarian cysts, left larger than right. Recommend follow-up transvaginal pelvic ultrasound examination in 8-12 weeks. No other significant abnormality.
[2018-07-13 14:30] VITALS: BP 115/88; PULSE 78; TEMP 98.1; O2SAT 100
== END 2018-07-13 14:29 | disposition home or self-care (01) ==
LOC: ED 09:03
DX: N83.202 Unspecified ovarian cyst, left side (principal); N83.201 Unspecified ovarian cyst, right side; N39.0 Urinary tract infection, site not specified
CPT/HCPCS: 76830; 80053; 81001; 81025; 85025; 87086; 96372; 99283; J1885